=== PATIENT | female | born 1990 | race Caucasian/White ===

== ENCOUNTER 2017-04-11 12:32 | Emergency (ER) | payer OTHER ==
[2017-04-11 12:43] VITALS: BP 112/81
[2017-04-11] MEDS ORDERED: Metoclopramide 10 MG/2 ML SDV IM ONE (13:10)
[2017-04-11] MEDS ORDERED: diphenhydrAMINE 50 MG/ML SDV IM ONE (13:10)
[2017-04-11] MEDS ORDERED: Ketorolac 60 MG/2 ML SDV IM ONE (13:10)
--- NOTE | 2017-04-11 14:12 | EDM.PDOC ---
ED HPI GENERAL MEDICAL PROBLEM - General Chief Complaint: Neurological Problem Stated Complaint: Migraine Time Seen by Provider: 04/11/17 13:00 Source of Information: Reports: Patient, RN Notes Reviewed History Limitations: Reports: No Limitations - History of Present Illness INITIAL COMMENTS - FREE TEXT/NARRATIVE: 26 year old female presents to the ED with complaints of migraine headache, intermittent blurry vision, nausea, vomiting, photophobia, and phonophobia. The headache started around 8am this morning. It started behind her left eye and has progressed to her entire head. She tried Ibuprofen with no relief. She has vomited 3 times today. She has intermittent blurry vision which is typical of her migraine headaches. No loss of balance, weakness, slurred speech, facial droop, or confusion. No possibility of . 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 Denies: Shortness of Breath Cardiovascular: Reports: No Symptoms. Denies: Chest Pain GI/Abdominal: Reports: Nausea, Vomiting. Denies: Abdominal Pain Neurological: Reports: Headache. Denies: Confusion, Dizziness, Numbness, Syncope, Tingling, Trouble Speaking, Difficulty Walking, Weakness - Physical Exam Exam: See Below Exam Limited By: No Limitations General Appearance: Alert, WD/WN, No Apparent Distress Eye Exam: Bilateral Eye: EOMI, PERRL Head Exam: Atraumatic, Normocephalic Respiratory/Chest: No Respiratory Distress, Lungs Clear, Normal Breath Sounds Cardiovascular: Regular Rate, Rhythm GI/Abdominal: Normal Bowel Sounds, Soft, Non-Tender Neuro Exam (Abbreviated): Alert, Oriented, CN II-XII Intact, Normal Cognition, Normal Gait, No Motor/Sensory Deficits, Other (cerebellar testing intact) Course - Vital Signs Last Recorded V/S: Last Vital Signs Temp 97.7 F 04/11/17 12:38 Pulse 70 04/11/17 12:38 Resp 16 04/11/17 12:38 BP 112/81 04/11/17 12:38 Pulse Ox 99 04/11/17 12:38 - Orders/Labs/Meds Meds: Medications Discontinued Medications Generic Name Dose Route Start Last Admin Trade Name Tito PRN Reason Stop Dose Admin Diphenhydramine HCl 25 mg 04/11/17 13:10 04/11/17 13:23 Benadryl IM 04/11/17 13:11 25 mg ONETIME ONE Administration Ketorolac Tromethamine 60 mg 04/11/17 13:10 04/11/17 13:21 Toradol IM 04/11/17 13:11 60 mg ONETIME ONE Administration Metoclopramide HCl 5 mg 04/11/17 13:10 04/11/17 13:24 Reglan IM 04/11/17 13:11 5 mg ONETIME ONE Administration - Re-Assessments/Exams Free Text/Narrative Re-Assessment/Exam: Patient has a normal neurologic exam today and therefore imaging is not indicated. Treated with Benadryl, toradol, and reglan. Patient had good improvement. Discharged home. Educated on return precautions. Discharge instructions as documented. Departure - Departure Time of Disposition: 14:11 Disposition: Home, Self-Care 01 Condition: Good Clinical Impression: Migraine - Discharge Information Referrals: Pyeton Thakur, CONTACT LENS POLISHER [Primary Care Provider] - Forms: ED Department Discharge Additional Instructions: Go home and rest in a dark quiet environment Continue over the counter pain medications as needed Drink plenty of fluids Return to ER with any new or worsening symptoms No driving today due to sedating medications.
== END 2017-04-11 14:25 | disposition home or self-care (01) ==
LOC: JD.ED 12:32
DX: G43.909 Migraine, unspecified, not intractable, without status migrainosus (principal); Z87.440 Personal history of urinary (tract) infections; Z86.2 Personal history of diseases of the blood and blood-forming organs and certain disorders involving the immune mechanism
CPT/HCPCS: 96372; 99283; J1200; J1885; J2765

== ENCOUNTER 2017-06-24 21:41 | Emergency (ER) | payer OTHER ==
[2017-06-24 21:49] VITALS: BP 131/89
[2017-06-24] MEDS ORDERED: Lidocaine/EPINEPHrine/Tetracaine Soln 1 ML TOP ONE (22:04)
--- NOTE | 2017-06-24 22:07 | EDM.PDOC ---
ED HPI GENERAL MEDICAL PROBLEM - General Chief Complaint: Laceration Stated Complaint: INJURED RIGHT EYEBROW Time Seen by Provider: 06/24/17 22:00 Source of Information: Reports: Patient History Limitations: Reports: No Limitations - History of Present Illness INITIAL COMMENTS - FREE TEXT/NARRATIVE: Patient is a 27-year-old female who presents to the ED complaining of a small laceration to the right eyebrow. Patient states her dogs were getting into a fight over.. grabbed the bowl and attempted to hit the dogs with it. During this process patient was actually hit in the eyebrow causing a laceration. There was no loss consciousness. Patient denies any neck or back discomfort. No vision changes or nausea/ vomiting. Pain is localized to the laceration. Tetanus status is up-to-date. 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 Other OB/BYN History: currently undergoing IVF Neurological History: Reports: Migraines Hematologic History: Reports: Anemia - Past Surgical History HEENT Surgical History: Reports: Adenoidectomy, Eye Surgery, Tonsillectomy GI Surgical History: Reports: Colonoscopy Other GI Surgeries/Procedures: per IVF protocol Female Surgical History: Reports: Section, Other (See Below) Other Female Surgeries/Procedures: tubal reconstruction Musculoskeletal Surgical History: Reports: Other (See Below) Other Musculoskeletal Surgeries/Procedures:: ruptured C5 neck surgery Social & Family History - Family History Family Medical History: Noncontributory - Tobacco Use Smoking Status *Q: Never Smoker Second Hand Smoke Exposure: No - Caffeine Use Caffeine Use: Reports: Coffee - Alcohol Use Days Per Week of Alcohol Use: 0 Number of Drinks Per Day: 0 Total Drinks Per Week: 0 - Recreational Drug Use Recreational Drug Use: No Drug Use in Last 12 Months: No ED ROS GENERAL - Review of Systems Review Of Systems: ROS reveals no pertinent complaints other than HPI. ED EXAM, SKIN/RASH Exam: See Below Exam Limited By: No Limitations General Appearance: Alert, WD/WN, No Apparent Distress Eye Exam: Bilateral Eye: EOMI, PERRL Ears: Hearing Grossly Normal Nose: Normal Inspection Throat/Mouth: Normal Voice, No Airway Compromise Head: Other (1 cm linear laceration to the right mid eyebrow. Keeping wound. No bleeding present. Minimal pain with palpation. No bony abnormalities present.) Neck: Normal Inspection, Supple Respiratory/Chest: No Respiratory Distress, No Accessory Muscle Use Cardiovascular: Normal Peripheral Pulses, Regular Rate, Rhythm Peripheral Pulses: 2+: Radial (R) Neurological: Alert, Oriented, CN II-XII Intact, Normal Cognition, No Motor/ Sensory Deficits Psychiatric: Normal Affect, Normal Mood Skin: Warm, Dry, Normal Color ED SKIN PROCEDURES - Laceration/Wound Repair Right Brow Lac/Wound length In cm: 1 Appearance: Subcutaneous, Clean Distal NVT: Neuro & Vascular Intact Anesthetic Type: Topical (LET) Skin Prep: Saline, Sterile Drape Exploration/Debridement/Repair: Wound Explored, In a Bloodless Field, Explored to Base, No Foreign Material Found Closed with: Sutures Suture Size: other (6.0) # of Sutures: 4 Suture Type: Prolene, Interrupted, Simple Drain Placement: No Sterile Dressing Applied: Nurse Tetanus Status Addressed: Yes Complications: No Course - Vital Signs Last Recorded V/S: Last Vital Signs Temp 97.4 F 06/24/17 21:46 Pulse 88 06/24/17 21:46 Resp 18 06/24/17 21:46 BP 131/89 06/24/17 21:46 Pulse Ox 99 06/24/17 21:46 - Orders/Labs/Meds Meds: Medications Discontinued Medications Generic Name Dose Route Start Last Admin Trade Name Freq PRN Reason Stop Dose Admin Lidocaine/Tetracaine 1 ml 06/24/17 22:04 06/24/17 22:12 Let Soln TOP 06/24/17 22:05 1 ml ONETIME ONE Administration - Re-Assessments/Exams Free Text/Narrative Re-Assessment/Exam: Laceration will require closure with sutures. Ordered LET to be applied. Tetanus status is up-to-date. Laceration closed with no complications. Discharge instructions as documented. Departure - Departure Time of Disposition: 23:06 Disposition: Home, Self-Care 01 Condition: Good Clinical Impression: Laceration of eyebrow, right Qualifiers: Encounter type: initial encounter Qualified Code(s): S01.111A - Laceration without foreign body of right eyelid and periocular area, initial encounter - Discharge Information Instructions: Laceration Care, Adult, [id number], Stitches, [place], or Adhesive Wound Closure, [id number] Referrals: Peyton Thakur, STOCK REPLENISHER [Primary Care Provider] - Forms: ED Department Discharge Additional Instructions: Cleanse site twice daily with soap and water, pat dry, reapply triple antibiotic ointment, and dressing. Keep area clean and dry. Do not soak wound. Sutures to come out in 5 days. Please follow up with a provider at [facility] to have these removed. Utilize Tylenol and ibuprofen in alternating fashion for pain. Return to the ED for any new or worsening symptoms.
== END 2017-06-24 23:19 | disposition home or self-care (01) ==
LOC: JD.ED 21:41
DX: S01.111A Laceration without foreign body of right eyelid and periocular area, initial encounter (principal); W22.8XXA Striking against or struck by other objects, initial encounter; D64.9 Anemia, unspecified; G43.909 Migraine, unspecified, not intractable, without status migrainosus
CPT/HCPCS: 12011; 99283; A9270; 99282-25

== ENCOUNTER 2018-02-28 11:03 | Emergency (ER) | payer OTHER ==
[2018-02-28] MEDS ORDERED: Ondansetron 4 MG/2 ML SDV IVPUSH ONE (11:43)
[2018-02-28] MEDS ORDERED: Sodium Chloride 0.9% 1,000 ML IV ONE (11:43)
[2018-02-28] MEDS ORDERED: Sodium Chloride 0.9% 10 ML Syringe FLUSH PRN (11:43)
[2018-02-28] MEDS ORDERED: Pantoprazole 40 MG Vial IVPUSH SCH (11:45)
--- NOTE | 2018-02-28 11:46 | EDM.PDOC ---
ED HPI GENERAL MEDICAL PROBLEM - General Chief Complaint: Gastrointestinal Problem Stated Complaint: VOMITING BLOOD Time Seen by Provider: 02/28/18 11:30 Source of Information: Reports: Patient History Limitations: Reports: No Limitations - History of Present Illness INITIAL COMMENTS - FREE TEXT/NARRATIVE: 27-year-old female presents for evaluation and treatment of a migraine, vomiting and diarrhea. Patient reports she's had a migraine for the last 4 days. She has a history of migraines. She has been on numerous medications but ihas not had any relief. She currently receives Botox and trigger point injections at the pain clinic in [place]. She states it has "been a while "since her last injections. States that this migraine feels typical to her normal migraines. Patient reports that she started vomiting and having diarrhea. She estimates she 's had over 10 episodes of vomiting today. Over 10 episodes of diarrhea today. She became concerned when she appreciated hematemesis, the last 3 episode she's had blood in her emesis. She is having difficulty quantifying the amount of blood and cannot tell if it is a few teaspoons or a cup. Reports seeing several small clots in her emesis. She is unsure she's had any blood in her stool as she has not checked her stool. She reports feeling lightheaded and unwell but no syncope. She has not had an episode of emesis and over an hour and is only been dry heaving now. States she's never had anything like this before. She reports associated symptoms of chest pain which she describes as a heaviness for the last 3 hours. Rates the pain as a 5 out of 10. She states that she's had "a little bit "of shortness of breath. Patient also reports lower back . She has a history of frequent kidney infections. Reports that she has strong urine odor but no dysuria or hematuria. Patient also reports that she has a history of anemia and States her iron is always low. Primary care provider is Alisia Thakur. 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 Other OB/BYN History: currently undergoing IVF Neurological History: Reports: Migraines Hematologic History: Reports: Anemia - Past Surgical History HEENT Surgical History: Reports: Adenoidectomy, Eye Surgery, Tonsillectomy GI Surgical History: Reports: Colonoscopy Female Surgical History: Reports: Section, Other (See Below) Other Female Surgeries/Procedures: tubal reconstruction Neurological Surgical History: Reports: C-Spine Social & Family History - Family History Family Medical History: Noncontributory - Tobacco Use Smoking Status *Q: Never Smoker - Caffeine Use Caffeine Use: Reports: None - Recreational Drug Use Recreational Drug Use: No ED ROS GENERAL - Review of Systems Review Of Systems: See Below Constitutional: Reports: Malaise, Weakness. Denies: Fever Respiratory: Reports: Shortness of Breath Cardiovascular: Reports: Chest Pain ("heaviness"), Lightheadedness GI/Abdominal: Reports: Diarrhea, Hematemesis, Vomiting. Denies: Abdominal Pain : Denies: Dysuria, Hematuria Neurological: Reports: Headache. Denies: Syncope ED EXAM, GI/ABD - Physical Exam Exam: See Below Exam Limited By: No Limitations General Appearance: Alert, WD/WN, No Apparent Distress, Thin Ears: Normal External Exam Nose: Normal Inspection Throat/Mouth: Normal Inspection, Normal Lips, Normal Oropharynx, Normal Voice, No Airway Compromise Neck: Normal Inspection, Full Range of Motion Respiratory/Chest: No Respiratory Distress, Lungs Clear, Normal Breath Sounds Cardiovascular: Normal Peripheral Pulses, Regular Rate, Rhythm, No Murmur GI/Abdominal Exam: Normal Bowel Sounds, Soft, Non-Tender Neurological: Alert, Oriented, Normal Cognition Psychiatric: Normal Affect, Normal Mood Skin Exam: Warm, Dry, Normal Color Course - Vital Signs Last Recorded V/S: Last Vital Signs Temp 98.0 F 02/28/18 11:10 Pulse 84 02/28/18 14:03 Resp 16 02/28/18 14:03 BP 110/76 02/28/18 14:03 Pulse Ox 100 02/28/18 14:03 Orthostatic Blood Pressure [ 125/81 Standing] Orthostatic Blood Pressure [ 107/75 Sitting] Orthostatic Blood Pressure [ 111/71 Supine] - Orders/Labs/Meds Orders: Active Orders 24 hr Category Date Time Status Orthostatic Vital Signs [RC] ASDIRECTED Care 02/28/18 11:43 Active Peripheral IV Care [RC] . DIRECTED Care 02/28/18 11:44 Active UA W/MICROSCOPIC [URIN] Stat Lab 02/28/18 11:43 Ordered Peripheral IV Insertion Adult [OM.PC] Routine Oth 02/28/18 11:43 Ordered Labs: Laboratory Tests 02/28/18 02/28/18 Range/Units 11:54 11:54 WBC 8.81 (3.98-10.04) K/mm3 RBC 5.09 (3.98-5.22) M/mm3 Hgb 14.5 (11.2-15.7) gm/L Hct 43.7 (34.1-44.9) % MCV 85.9 (79.4-94.8) fl MCH 28.5 (25.6-32.2) pg MCHC 33.2 (32.2-35.5) g/dl RDW Std Deviation 44.0 (36.4-46.3) fL Plt Count 355 (182-369) K/mm3 MPV 10.3 (9.4-12.3) fl Neutrophils % (Manual) 76 H (40-60) % Band Neutrophils % 6 (0-10) % Lymphocytes % (Manual) 17 L (20-40) % Atypical Lymphs % 0 % Monocytes % (Manual) 1 L (2-10) % Eosinophils % (Manual) 0 L (0.7-5.8) % Basophils % (Manual) 0 L (0.1-1.2) Platelet Estimate Adequate RBC Morph Comment Normal Sodium 140 (136-145) mEq/L Potassium 3.4 L (3.5-5.1) mEq/L Chloride 105 (98-107) mEq/L Carbon Dioxide 23 (21-32) mEq/L Anion Gap 15.4 H (5-15) BUN 13 (7-18) mg/dL Creatinine 0.9 (0.55-1.02) mg/dL Est Cr Clr Drug Dosing 71.84 mL/min Estimated GFR (MDRD) > 60 (>60) mL/min BUN/Creatinine Ratio 14.4 (14-18) Glucose 91 (74-106) mg/dL Calcium 8.6 (8.5-10.1) mg/dL Total Bilirubin 0.5 (0.2-1.0) mg/dL AST 17 (15-37) U/L ALT 26 (14-59) U/L Alkaline Phosphatase 54 (46-116) U/L Total Protein 7.6 (6.4-8.2) g/dl Albumin 4.3 (3.4-5.0) g/dl Globulin 3.3 gm/dL Albumin/Globulin Ratio 1.3 (1-2) Meds: Medications Discontinued Medications Generic Name Dose Route Start Last Admin Trade Name Freq PRN Reason Stop Dose Admin Sodium Chloride 1,000 mls @ 999 mls/hr 02/28/18 11:43 02/28/18 12:15 Normal Saline IV 02/28/18 12:43 999 mls/hr ONETIME ONE Administration Iopamidol 100 ml 02/28/18 11:51 02/28/18 12:04 Isovue-300 (61%) IVPUSH 02/28/18 11:52 100 ml ONETIME ONE Administration Ketorolac Tromethamine 15 mg 02/28/18 13:47 02/28/18 14:02 Toradol IVPUSH 02/28/18 13:48 15 mg ONETIME ONE Administration Ondansetron HCl 4 mg 02/28/18 11:43 02/28/18 12:09 Zofran IVPUSH 02/28/18 11:44 4 mg ONETIME ONE Administration Pantoprazole Sodium 40 mg 02/28/18 11:45 02/28/18 12:08 Protonix Iv IVPUSH 40 mg DAILY CAMELIA Administration Sodium Chloride 10 ml 02/28/18 11:43 02/28/18 12:15 Saline Flush FLUSH 10 ml ASDIRECTED PRN Administration Keep Vein Open Sodium Chloride 10 ml 02/28/18 11:51 02/28/18 12:04 Saline Flush FLUSH 02/28/18 11:52 10 ml ONETIME ONE Administration - Radiology Interpretation Free Text/Narrative:: CT chest Technique: Multiple axial sections of the chest were obtained. Intravenous contrast was utilized. Comparison: No prior chest imaging. Findings: Mediastinum and hilar region show no adenopathy are mass. Aorta and inferior vena cava appear within normal limits. No pericardial thickening is seen. Small portion of the upper abdominal structures appear within normal limits. No axillary adenopathy is seen. Small pleural-based nodule is identified within the anterior right lung located within the right middle lobe measuring 2.7 mm which is felt to be incidental. Lungs otherwise are clear. No pleural effusions are seen. No pneumothorax is seen. Bone window settings were reviewed but shows no discrete osseous abnormality. Prior cervical spine surgery is partially visualized. Impression: 1. Incidental findings. Nothing acute is appreciated on CT study of the chest. - Re-Assessments/Exams Free Text/Narrative Re-Assessment/Exam: 02/28/18 13:40 I reviewed the labs and imaging with the patient. She has not had any emesis since entering the ER. She likely has a very small tear that caused some bleeding earlier but nothing major. Treatment is to stop the emesis. I'll prescribe her some Zofran. She continues to have a migraine. I offered her some pain medication but she does not want any narcotics. I will give her a small dose of Tordol. Discharge instructions as documented. Departure - Departure Time of Disposition: 13:44 Disposition: Home, Self-Care 01 Condition: Fair Clinical Impression: Kelsey-Diop tear, Viral gastroenteritis - Discharge Information Prescriptions: Ondansetron [Zofran ODT] 4 mg PO Q6H PRN #20 tab.dis PRN Reason: Nausea Instructions: Viral Gastroenteritis, Adult, [id number] Referrals: Peyton Thakur, DRIVER/REFUSE COLLECTOR [Primary Care Provider] - Forms: ED Department Discharge Additional Instructions: Take the Zofran 1 tab sublingual every 6 hours as needed for nausea. Recommend clear fluids today. may advance to a bland diet tomorrow as tolerated. Home diet recommendations include bread, soup broth, crackers, etc. Follow-up with your primary care provider early next week if your symptoms persist. Please return to ER if your symptoms change or worsen. - My Orders Last 24 Hours: My Active Orders 02/28/18 11:43 Orthostatic Vital Signs [RC] ASDIRECTED UA W/MICROSCOPIC [URIN] Stat Peripheral IV Insertion Adult [OM.PC] Routine 02/28/18 11:44 Peripheral IV Care [RC] . DIRECTED - Assessment/Plan Last 24 Hours: My Active Orders 02/28/18 11:43 Orthostatic Vital Signs [RC] ASDIRECTED UA W/MICROSCOPIC [URIN] Stat Peripheral IV Insertion Adult [OM.PC] Routine 02/28/18 11:44 Peripheral IV Care [RC] . DIRECTED
[2018-02-28] MEDS ORDERED: Sodium Chloride 0.9% 10 ML Syringe FLUSH ONE (11:51)
[2018-02-28] MEDS ORDERED: Iopamidol 612 MG/ML 100 ML Bottle IVPUSH ONE (11:51)
--- NOTE | 2018-02-28 12:46 | CT ---
CT chest Technique: Multiple axial sections of the chest were obtained. Intravenous contrast was utilized. Comparison: No prior chest imaging. Findings: Mediastinum and hilar region show no adenopathy are mass. Aorta and inferior vena cava appear within normal limits. No pericardial thickening is seen. Small portion of the upper abdominal structures appear within normal limits. No axillary adenopathy is seen. Small pleural-based nodule is identified within the anterior right lung located within the right middle lobe measuring 2.7 mm which is felt to be incidental. Lungs otherwise are clear. No pleural effusions are seen. No pneumothorax is seen. Bone window settings were reviewed but shows no discrete osseous abnormality. Prior cervical spine surgery is partially visualized. Impression: 1. Incidental findings. Nothing acute is appreciated on CT study of the chest. Diagnostic code #2
[2018-02-28] MEDS ORDERED: Ketorolac 15 MG/ML SDV IVPUSH ONE (13:47)
[2018-02-28 14:05] VITALS: BP 110/76
== END 2018-02-28 14:07 | disposition home or self-care (01) ==
LOC: JD.ED 11:03
DX: A08.4 Viral intestinal infection, unspecified (principal); K22.6 Gastro-esophageal laceration-hemorrhage syndrome; D64.9 Anemia, unspecified
CPT/HCPCS: 36415; 71260; 80053; 85007; 85027; 96361; 96374; 96375; 99284; C9113; J1885; J2405; J7040; J7050; Q9967

== ENCOUNTER 2018-11-01 13:30 | Emergency (ER) | payer OTHER ==
[2018-11-01 13:39] VITALS: BP 127/93
--- NOTE | 2018-11-01 14:48 | EDM.PDOC ---
ED HPI GENERAL MEDICAL PROBLEM - General Chief Complaint: Allergic Reaction Stated Complaint: ALLERGIC RX Time Seen by Provider: 11/01/18 13:39 Source of Information: Reports: Patient History Limitations: Reports: No Limitations - History of Present Illness INITIAL COMMENTS - FREE TEXT/NARRATIVE: 28 yo F presents to ED today for bilateral eyelid swelling, L>R, after having eyelash extensions placed yesterday. She states she started having itching 2 hours after they were placed, and then swelling and feeling of eye lid being " on fire" woke her up at 2am. She tried Benadryl this morning with no relief. She had the eyelash extensions removed this AM. No fever, chills or other signs of infection at this time. She does c/o of some new onset blurry vision d/t her "eyes being on fire". Last visit to the payroll processor was 1 year ago. She has h/o Lasik procedure 4 years ago. 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 COMPUTER GAME TESTER History: currently undergoing IVF Neurological History: Reports: Migraines Hematologic History: Reports: Anemia - Infectious Disease History Infectious Disease History: Reports: Chicken Pox - Past Surgical History HEENT Surgical History: Reports: Adenoidectomy, Eye Surgery, Tonsillectomy GI Surgical History: Reports: Colonoscopy Female Surgical History: Reports: Section, Other (See Below) Other Female Surgeries/Procedures: tubal reconstruction Neurological Surgical History: Reports: C-Spine Musculoskeletal Surgical History: Reports: Other (See Below) Other Musculoskeletal Surgeries/Procedures:: ruptured C5 neck surgery Social & Family History - Family History Family Medical History: Noncontributory - Tobacco Use Smoking Status *Q: Never Smoker - Caffeine Use Caffeine Use: Reports: Coffee - Recreational Drug Use Recreational Drug Use: No ED ROS ALLERGIC REACTION - Review of Systems Review Of Systems: See Below Constitutional: Reports: No Symptoms. Denies: Fever, Chills HEENT: Reports: Eye Pain (eyelid pain), Vision Change (some blurry vision). Denies: Contact Lenses Respiratory: Reports: No Symptoms. Denies: Shortness of Breath Cardiovascular: Reports: No Symptoms Endocrine: Reports: No Symptoms GI/Abdominal: Reports: No Symptoms Skin: Reports: Erythema (eyelids bilaterally), Other (swelling of eyelids bilaterally) Neurological: Reports: No Symptoms ED EXAM GENERAL NO PERIP PULSE - Physical Exam Exam: See Below Exam Limited By: No Limitations General Appearance: Alert, WD/WN Eye Exam: Bilateral Eye: EOMI, PERRL Ears: Normal External Exam, Hearing Grossly Normal Nose: Normal Inspection, Normal Mucosa, No Blood Throat/Mouth: Normal Inspection, Normal Lips, Normal Teeth, Normal Gums, Normal Oropharynx, Normal Voice, No Airway Compromise Head: Atraumatic, Normocephalic Neck: Normal Inspection, Supple, Non-Tender, Full Range of Motion Respiratory/Chest: No Respiratory Distress, Lungs Clear, Normal Breath Sounds, No Accessory Muscle Use, Chest Non-Tender Cardiovascular: Normal Peripheral Pulses, Regular Rate, Rhythm, No Edema, No Gallop, No JVD, No Murmur, No Rub Neurological: Alert, Oriented, CN II-XII Intact, Normal Cognition, Normal Gait, Normal Reflexes, No Motor/Sensory Deficits Course - Vital Signs Last Recorded V/S: Last Vital Signs Temp 98 F 11/01/18 13:30 Pulse 98 11/01/18 13:30 Resp 18 11/01/18 13:30 BP 127/93 H 11/01/18 13:30 Pulse Ox 99 11/01/18 13:30 - Re-Assessments/Exams Free Text/Narrative Re-Assessment/Exam: 11/01/18 14:52 Cold compress for now. No medical treatment warranted at this time. Departure - Departure Time of Disposition: 14:53 Disposition: Home, Self-Care 01 Condition: Good Clinical Impression: Contact dermatitis - Discharge Information *PRESCRIPTION DRUG MONITORING PROGRAM REVIEWED*: Not Applicable *COPY OF PRESCRIPTION DRUG MONITORING REPORT IN PATIENT TANIA: Not Applicable Instructions: Contact Dermatitis, [id number] Referrals: Ariana Theodore PA-C [Primary Care Provider] - Forms: ED Department Discharge Additional Instructions: You were seen in the ED today for bilateral eyelid swelling and pain after placement of eyelash extensions. You already had the extensions removed, which is the main treatment for a contact dermatitis. Continue cold compress and continue to rest the eyes until the swelling decreases. This is not necessarily an allergic reaction, which is why Benadryl didn't work. Continue pain management with [id number] medication such as ibuprofen or Tylenol. If condition does not improve or worsens, please come back to the ED. Recommend f/ u with your payroll processor.
== END 2018-11-01 15:00 | disposition home or self-care (01) ==
LOC: JD.ED 13:30
DX: L25.0 Unspecified contact dermatitis due to cosmetics (principal); Z87.440 Personal history of urinary (tract) infections; Z98.890 Other specified postprocedural states
CPT/HCPCS: 99281; 99283

== ENCOUNTER 2018-11-02 07:58 | Emergency (ER) | payer OTHER ==
[2018-11-02 08:10] VITALS: BP 115/81
[2018-11-02] MEDS ORDERED: predniSONE 20 MG Tab PO STA (08:23)
--- NOTE | 2018-11-02 08:32 | EDM.PDOC ---
ED HPI GENERAL MEDICAL PROBLEM - General Chief Complaint: Allergic Reaction Stated Complaint: ALLERGIC RX GETTING WORSE Time Seen by Provider: 11/02/18 08:08 Source of Information: Reports: Patient, Old Records (ED 11/01/2018), RN Notes Reviewed History Limitations: Reports: No Limitations - History of Present Illness INITIAL COMMENTS - FREE TEXT/NARRATIVE: The patient states that she developed bilateral eyelid swelling, upper and lower , 2 days ago, 10/31/2018. She states that her eyelids burn. No globe issues, such as burning or visual changes. No systemic allergic reactions, such as urticaria, rash, angioedema, dyspnea, or wheezing. No recent fever. The patient states that she has been taking Benadryl, 3 tabs (75 mg) every 4 hours, to help her sleep. She has also been taking Tylenol, and applying cold compresses, without relief of her symptoms. No prior similar symptoms. The patient reports that she had eyelash extensions applied 9 days ago, 10/24/2018, but that they were removed the same day. She states that she only occasionally uses eyeliner or mascara. The patient denies chemical exposure, either at work or at home. Medical records indicate that the patient was seen in this ED yesterday. The history provided by the patient today does not match the history documented yesterday. The patient was diagnosed with contact dermatitis, and cold compresses to the eyelids was recommended. The patient's PCP is Ariana Grijalva. 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 Ovarian cystectomy x 1) Neurological Surgical History: Reports: C-Spine (C4-C5 ACDF) Musculoskeletal Surgical History: Reports: Other (See Below) Other Musculoskeletal Surgeries/Procedures:: ruptured C5 neck surgery Social & Family History - Family History Family Medical History: Noncontributory - Tobacco Use Smoking Status *Q: Never Smoker Second Hand Smoke Exposure: No - Caffeine Use Caffeine Use: Reports: Coffee - Alcohol Use Alcohol Use History: Yes Alcohol Use Frequency: Socially - Recreational Drug Use Recreational Drug Use: No - Living Situation & Occupation Living situation: Reports: , with Spouse, with Family (2 kids) 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 ED EXAM, GENERAL - Physical Exam Exam: See Below Exam Limited By: No Limitations General Appearance: Alert, WD/WN, No Apparent Distress Eye Exam: Bilateral Eye: EOMI, Normal Inspection, Other (Bilateral upper and lower eyelid edema, with mild erythema) Ears: Normal External Exam, Hearing Grossly Normal Nose: Normal Inspection Throat/Mouth: Normal Inspection, Normal Lips, Normal Teeth, Normal Gums, Normal Oropharynx, Normal Voice, No Airway Compromise Head: Atraumatic, Normocephalic Neck: Normal Inspection, Full Range of Motion. No: Lymphadenopathy (L), Lymphadenopathy (R) Respiratory/Chest: No Respiratory Distress, Lungs Clear, Normal Breath Sounds, No Accessory Muscle Use. No: Decreased Breath Sounds, Crackles, Rhonchi, Wheezing, Prolonged Expiration Cardiovascular: Normal Peripheral Pulses, Regular Rate, Rhythm, No Edema, No Gallop, No JVD, No Murmur, No Rub Peripheral Pulses: 4+: Radial (L), Radial (R) GI/Abdominal: Normal Bowel Sounds, Soft, Non-Tender, No Organomegaly, No Distention, No Abnormal Bruit, No Mass (Female) Exam: Deferred Rectal (Female) Exam: Deferred Back Exam: Normal Inspection, Full Range of Motion, NT Extremities: Normal Inspection, Normal Range of Motion, No Pedal Edema, Normal Capillary Refill Neurological: Alert, Oriented, Normal Cognition, No Motor/Sensory Deficits Psychiatric: Normal Affect Skin Exam: Warm, Dry, Intact, Normal Color, No Rash Course - Vital Signs Last Recorded V/S: Last Vital Signs Temp 36.9 C 11/02/18 08:04 Pulse 65 11/02/18 08:04 Resp 12 11/02/18 08:04 BP 115/81 11/02/18 08:04 Pulse Ox 100 11/02/18 08:04 - Orders/Labs/Meds Meds: Medications Discontinued Medications Generic Name Dose Route Start Last Admin Trade Name Tito PRN Reason Stop Dose Admin Prednisone 40 mg 11/02/18 08:23 Prednisone PO 11/02/18 08:24 ONETIME STA - Re-Assessments/Exams Free Text/Narrative Re-Assessment/Exam: 11/02/18 08:24 The patient appears to be suffering from a delayed contact dermatitis to her eyelids, following eyelid extensions being applied on 10/24/2018. Cold compresses have not helped, therefore I will give the patient a five-day course of oral prednisone - 40 mg here in the ED, then 20 mg daily, starting tomorrow. If the prednisone either fails to reduce the swelling, or is successful, but the swelling returns, I would like the patient to follow-up with an eye doctor. Departure - Departure Time of Disposition: 08:26 Disposition: Home, Self-Care 01 Condition: Fair Clinical Impression: Contact dermatitis of eyelid - Discharge Information *PRESCRIPTION DRUG MONITORING PROGRAM REVIEWED*: Not Applicable *COPY OF PRESCRIPTION DRUG MONITORING REPORT IN PATIENT TANIA: Not Applicable Referrals: Ariana Theodore PA-C [Primary Care Provider] - Additional Instructions: You were seen in the emergency room for eyelid swelling that began a week after having eyelid extensions placed and removed. Based on your history and physical examination, your eyelid swelling is most likely due to contact dermatitis from the eyelid extension adhesive. You have been started on the steroid prednisone. A prescription for prednisone has been sent to the [facility], located just south [address] [place] [address] from [facility], [place]. Take one tablet of prednisone, with food, starting tomorrow, 11/03/2018, as prescribed. While on prednisone, do not also take an NSAID, such as ibuprofen (Motrin, Advil ), naproxen (Aleve), or aspirin. Continue to apply cold compresses to your eyelids, as much as possible. Try to avoid heat. Keep your eyelids clean with ordinary soap and water, when you bathe. Do not apply any eyeliner or eye makeup. If the prednisone fails to reduce your swelling, or if the swelling goes down, only to return once the prednisone is finished, please follow-up with an eye doctor. If any other problems, please do not hesitate to return to the ER.
== END 2018-11-02 08:40 | disposition home or self-care (01) ==
LOC: JD.ED 07:58
DX: L25.9 Unspecified contact dermatitis, unspecified cause (principal)
CPT/HCPCS: 99283; A9270

== ENCOUNTER 2019-10-23 11:49 | Emergency (ER) | payer OTHER ==
[2019-10-23 12:01] VITALS: BP 132/88; PULSE 83
[2019-10-23] MEDS ORDERED: Sodium Chloride 0.9% 1,000 ML IV ONE (12:03)
[2019-10-23] MEDS ORDERED: Ondansetron 4 MG/2 ML SDV IVPUSH ONE (12:03)
[2019-10-23] MEDS ORDERED: Sodium Chloride 0.9% 10 ML Syringe FLUSH PRN (12:31)
[2019-10-23] MEDS ORDERED: HYDROmorphone 0.5 MG/0.5 ML Syringe IVPUSH ONE ×2 (12:31→14:10)
--- NOTE | 2019-10-23 13:25 | EDM.PDOC ---
ED HPI GENERAL MEDICAL PROBLEM - General Chief Complaint: Flank Pain Stated Complaint: FLANK PAIN Time Seen by Provider: 10/23/19 12:02 Source of Information: Reports: Patient, RN Notes Reviewed History Limitations: Reports: No Limitations - History of Present Illness INITIAL COMMENTS - FREE TEXT/NARRATIVE: Patient is a 29-year-old female who presents to the ED for evaluation of left- sided flank pain. Patient notes this is been present since around Saturday. She is complaining of left-sided flank pain, dysuria, and urinary frequency. She did also have a few vomiting episodes, Saturday night. She is also complaining of intermittent nausea, chills and some hot flashes. She has not taken her temperature at home as she does not have a thermometer. Patient states that she does have a history of kidney stones. She has been taking [id number] Tylenol but it does not really provide much relief from the pain. Patient denies any sort of chance of as she does not have any fallopian tubes. She would rate her pain at about 5 out of 10 at today's visit. 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 Other DIE TURNER History: currently undergoing IVF Musculoskeletal History: Reports: Fracture Neurological History: Reports: Migraines Hematologic History: Reports: Anemia - Infectious Disease History Infectious Disease History: Reports: Chicken Pox - Past Surgical History HEENT Surgical History: Reports: Adenoidectomy, LASIK, Oral Surgery, Tonsillectomy GI Surgical History: Reports: Colonoscopy Female Surgical History: Reports: Section Neurological Surgical History: Reports: C-Spine Musculoskeletal Surgical History: Reports: Other (See Below) Other Musculoskeletal Surgeries/Procedures:: ruptured C5 neck surgery Social & Family History - Family History Family Medical History: Noncontributory - Tobacco Use Smoking Status *Q: Never Smoker - Caffeine Use Caffeine Use: Reports: Coffee - Recreational Drug Use Recreational Drug Use: No - Living Situation & Occupation Living situation: Reports: , with Spouse, with Family (2 kids) 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 Denies: Fever Respiratory: Denies: Shortness of Breath Cardiovascular: Denies: Chest Pain GI/Abdominal: Reports: Nausea, Vomiting. Denies: Abdominal Pain, Constipation, Diarrhea : Reports: Dysuria, Flank Pain (L flank), Frequency Musculoskeletal: Reports: Back Pain (L upper back) ED EXAM, RENAL/ - Physical Exam Exam: See Below Exam Limited By: No Limitations General Appearance: Alert, WD/WN, No Apparent Distress Eye Exam: Bilateral Eye: EOMI, Normal Inspection, PERRL Nose: Normal Inspection Throat/Mouth: Normal Inspection Head: Atraumatic, Normocephalic Neck: Normal Inspection Respiratory/Chest: No Respiratory Distress, Lungs Clear, Normal Breath Sounds, No Accessory Muscle Use, Chest Non-Tender Cardiovascular: Normal Peripheral Pulses, Regular Rate, Rhythm, No Murmur GI/Abdominal: Normal Bowel Sounds, Soft, Non-Tender, No Distention, No Mass Back Exam: Normal Inspection, CVA Tenderness (L). No: CVA Tenderness (R) Extremities: Normal Inspection, Normal Capillary Refill Neurological: Alert, Oriented, Normal Cognition, No Motor/Sensory Deficits Psychiatric: Normal Affect, Normal Mood Skin Exam: Warm, Dry, Intact, Normal Color, No Rash Course - Vital Signs Last Recorded V/S: Last Vital Signs Temp 99.1 F 10/23/19 11:58 Pulse 83 10/23/19 11:58 Resp 14 10/23/19 11:58 BP 132/88 10/23/19 11:58 Pulse Ox 100 10/23/19 11:58 - Orders/Labs/Meds Orders: Active Orders 24 hr Category Date Time Status Peripheral IV Care [RC] . DIRECTED Care 10/23/19 12:31 Ordered Strain Urine [RC] ASDIRECTED Care 10/23/19 12:03 Ordered Abdomen Pelvis wo Cont [CT] Stat Exams 10/23/19 12:03 Ordered CULTURE URINE [RM] Stat Lab 10/23/19 14:43 Ordered Sodium Chloride 0.9% [Saline Flush] Med 10/23/19 12:31 Ordered 10 ml FLUSH ASDIRECTED PRN Peripheral IV Insertion Adult [OM.PC] Stat Oth 10/23/19 12:31 Ordered Medication Orders Sodium Chloride (Saline Flush) 10 ml FLUSH ASDIRECTED PRN PRN Reason: Keep Vein Open Last Admin: 10/23/19 13:03 Dose: 10 ml Labs: Laboratory Tests 10/23/19 10/23/19 Range/Units 12:03 12:46 WBC 7.27 (3.98-10.04) K/mm3 RBC 4.22 (3.98-5.22) M/mm3 Hgb 11.9 D (11.2-15.7) gm/dl Hct 36.9 (34.1-44.9) % MCV 87.4 D (79.4-94.8) fl MCH 28.2 (25.6-32.2) pg MCHC 32.2 (32.2-35.5) g/dl RDW Std Deviation 44.5 (36.4-46.3) fL Plt Count 267 (182-369) K/mm3 MPV 10.1 (9.4-12.3) fl Neut % (Auto) 78.4 H (34.0-71.1) % Lymph % (Auto) 10.6 L (19.3-51.7) % Rogers % (Auto) 8.7 (4.7-12.5) % Eos % (Auto) 1.9 (0.7-5.8) Baso % (Auto) 0.3 (0.1-1.2) % Neut # (Auto) 5.70 (1.56-6.13) K/mm3 Lymph # (Auto) 0.77 L (1.18-3.74) K/mm3 Rogers # (Auto) 0.63 H (0.24-0.36) K/mm3 Eos # (Auto) 0.14 (0.04-0.36) K/mm3 Baso # (Auto) 0.02 (0.01-0.08) K/mm3 Urine Color Light yellow (Yellow) Urine Appearance Slt cloudy H (Clear) Urine pH 6.0 (5.0-8.0) Ur Specific [place] 1.025 (1.005-1.030) Urine Protein 2+ H (Negative) Urine Glucose (UA) Negative (Negative) Urine Ketones 2+ H (Negative) Urine Occult Blood 3+ H (Negative) Urine Nitrite Positive H (Negative) Urine Bilirubin 1+ H (Negative) Urine Urobilinogen 0.2 (0.2-1.0) Ur Leukocyte Esterase 1+ H (Negative) Urine RBC >100 H (0-5) /hpf Urine WBC 10-20 H (0-5) /hpf Ur Squamous Epith Cells 0-5 (0-5) /hpf Urine Bacteria Moderate H (FEW) /hpf Urine Mucus Not seen (FEW) /hpf Meds: Medications Generic Name Dose Route Start Last Admin Trade Name Freq PRN Reason Stop Dose Admin Sodium Chloride 10 ml 10/23/19 12:31 10/23/19 13:03 Saline Flush FLUSH 10 ml ASDIRECTED PRN Administration Keep Vein Open Discontinued Medications Generic Name Dose Route Start Last Admin Trade Name Freq PRN Reason Stop Dose Admin Hydromorphone HCl 0.5 mg 10/23/19 12:31 10/23/19 13:02 Dilaudid IVPUSH 10/23/19 12:32 0.5 mg ONETIME ONE Administration Hydromorphone HCl 0.5 mg 10/23/19 14:10 10/23/19 14:23 Dilaudid IVPUSH 10/23/19 14:11 0.5 mg ONETIME ONE Administration Sodium Chloride 1,000 mls @ 999 mls/hr 10/23/19 12:03 10/23/19 13:01 Normal Saline IV 10/23/19 13:03 999 mls/hr ASDIRECTED ONE Administration Ceftriaxone Sodium 1 gm/ 100 mls @ 200 mls/hr 10/23/19 13:33 10/23/19 14:06 Sodium Chloride IV 10/23/19 14:02 200 mls/hr ONETIME ONE Administration Ondansetron HCl 4 mg 10/23/19 12:03 10/23/19 13:01 Zofran IVPUSH 10/23/19 12:04 4 mg ONETIME ONE Administration - Re-Assessments/Exams Free Text/Narrative Re-Assessment/Exam: 10/23/19 12:36 Patient presents to the ED for the evaluation of left-sided flank pain. Due to the patient's history of kidney stone, I did order IV to be placed with some IV fluids, abdomen pelvis CT without contrast, urinalysis, 4 mg Zofran and 0.5 mg Dilaudid for initial management. 10/23/19 14:13 Patient urinalysis is highly suggestive of a pyelonephritis at this time. The CT did demonstrate a nonobstructing left renal calculus measuring 6.2 mm, there was nothing noted in the ureter however. At this time patient will be treated for the pyelonephritis and she has been given 1 g of Rocephin, she is still having some mild pain so I will order another 0.5mg of Dilaudid for the pain relief. Departure - Departure Time of Disposition: 14:44 Disposition: Home, Self-Care 01 Condition: Fair Clinical Impression: Pyelonephritis - Discharge Information *PRESCRIPTION DRUG MONITORING PROGRAM REVIEWED*: No *COPY OF PRESCRIPTION DRUG MONITORING REPORT IN PATIENT TANIA: No Prescriptions: Ciprofloxacin HCl [Cipro] 500 mg PO BID #20 tablet Instructions: Pyelonephritis, Adult, [id number] Referrals: PCP,None [Primary Care Provider] - Forms: ED Department Discharge Additional Instructions: You have been evaluated in the ED for your urinary symptoms. Your urinalysis was consistent with pyelonephritis. Your urine was sent for culture, and you will be notified if you should need a change in your antibiotic. This may take up to [address] A [address] was done at today's visit, due to history of kidney stones, this did demonstrate a pyelonephritis, which is a slightly progressed UTI. You may take AZO for urinary pain relief. This is available over the counter, and can be attained at any retail store like [employer] or any pharmacy. Please be aware that this medication will make your urine turn orange. You have been given a prescription for Ciprofloxacin, 500 mg 1 tablet 2 times a day for 10 days. Recommend that you take 600 mg ibuprofen every 6 hours for further pain relief. Do not exceed 3200 mg of ibuprofen in a 24-hour time span. Please increase your oral fluid intake and try to stay adequately hydrated. Please return to the ED if your symptoms change or worsen. Sepsis Event Note - Evaluation Sepsis Screening Result: No Definite Risk - Focused Exam Vital Signs: Vital Signs Temp Pulse Resp BP Pulse Ox 10/23/19 11:58 99.1 F 83 14 132/88 100 Date Exam was Performed: 10/23/19 Time Exam was Performed: 14:43 - My Orders Last 24 Hours: My Active Orders 10/23/19 12:03 Strain Urine [RC] ASDIRECTED Abdomen Pelvis wo Cont [CT] Stat 10/23/19 12:31 Peripheral IV Care [RC] . DIRECTED Sodium Chloride 0.9% [Saline Flush] 10 ml FLUSH ASDIRECTED PRN Peripheral IV Insertion Adult [OM.PC] Stat 10/23/19 14:43 CULTURE URINE [RM] Stat - Assessment/Plan Last 24 Hours: My Active Orders 10/23/19 12:03 Strain Urine [RC] ASDIRECTED Abdomen Pelvis wo Cont [CT] Stat 10/23/19 12:31 Peripheral IV Care [RC] . DIRECTED Sodium Chloride 0.9% [Saline Flush] 10 ml FLUSH ASDIRECTED PRN Peripheral IV Insertion Adult [OM.PC] Stat 10/23/19 14:43 CULTURE URINE [RM] Stat
[2019-10-23] MEDS ORDERED: cefTRIAXone 1 GM in Sodium Chloride 0.9% 100 ML IV ONE (13:33)
--- NOTE | 2019-10-24 08:07 | CT ---
CT abdomen and pelvis Technique: Multiple axial sections were obtained from above the dome of the diaphragm inferiorly through the pubic symphysis. Intravenous and oral contrast was not not utilized. Study has been performed as a ureteral stone protocol. Comparison: Previous CT abdomen and pelvis exam of 07/24/18. Findings: Nonobstructing calculus noted within the left kidney. This stone measures approximately 7 mm and is seen on previous exam. No ureteral dilatation or ureteral stone is seen. Other findings: Visualized lung bases show nothing acute. Noncontrast appearance of the liver shows no focal parenchymal abnormality. Spleen appears normal. Gallbladder contains no calcified gallstones. Pancreas is within normal limits. Aorta shows no aneurysm. No retroperitoneal adenopathy or mesenteric abnormalities are seen. No pelvic mass or adenopathy is noted. Small amount of free fluid noted within the pelvis which is most likely physiologic. No free fluid or inflammatory change is appreciated. Slight increased stool seen throughout the colon. Appendix is not definitely visualized. Bone window settings were reviewed. No acute osseous finding is seen. Impression: 1. Stable nonobstructing stone within the left kidney from prior exam. 2. No ureteral dilatation or ureteral calcifications are seen. 3. Mild increased stool within the colon. 4. Small amount of fluid within the cul-de-sac believed to be physiologic. 5. Nothing acute is otherwise seen on noncontrast CT study of the abdomen and pelvis performed as a ureteral stone protocol. Diagnostic code #3 This report was dictated in [place] Standard Time I agree with preliminary report from [facility], finalized on 10/23/19, 2:43 PM Central Time
== END 2019-10-23 15:04 | disposition home or self-care (01) ==
LOC: JD.ED 11:49
DX: N12 Tubulo-interstitial nephritis, not specified as acute or chronic (principal)
CPT/HCPCS: 36415; 74176; 81001; 85025; 87086; 87088; 87184; 87186; 96361; 96374; 96375; 96376; 99284; J0696; J1170; J2405; J7030; J7050

== ENCOUNTER 2020-04-14 10:47 | Emergency (ER) | payer OTHER ==
[2020-04-14] MEDS ORDERED: Ibuprofen 600 MG Tab PO ONE (11:09)
[2020-04-14 11:12] VITALS: BP 110/95; PULSE 69
--- NOTE | 2020-04-14 11:15 | EDM.PDOC ---
ED HPI GENERAL MEDICAL PROBLEM - General Chief Complaint: Lower Extremity Injury/Pain Stated Complaint: FALL/ L FOOT INJURY Time Seen by Provider: 04/14/20 11:03 Source of Information: Reports: Patient, Significant Other (Boyfriend) History Limitations: Reports: No Limitations - History of Present Illness INITIAL COMMENTS - FREE TEXT/NARRATIVE: Ms. Summers is a very pleasant 29-year-old woman who now presents the ED with a left foot injury. She states that she missed a step while going down stairs around 10:00 this morning, injuring the lateral aspect of her foot. She states that initially her pain was limited to the lateral aspect of her foot, but now involves the entire foot. Her pain is made worse with ambulation. No prior left foot injury, and she states that she is otherwise uninjured. The patient did not take any home remedies or horv-blq-rlxaqxd medicines prior to coming to the ED. Here in the ED, the patient is found to be hemodynamically stable, afebrile, saturating 100% on room air. Other than her current left foot injury, the patient denies recent fever, chills, sore throat, ear pain, nasal or sinus congestion, cough, dyspnea, chest pain, palpitations, nausea, vomiting, constipation, diarrhea, abdominal pain, urinary symptoms, recent weight gain or weight loss, recent bloody bowel movements or black bowel movements, recent joint aches, headaches, or rashes. The patient's PCP is ALEXANDER Waddell. Her Supervisor Diagnostic is Dr. Tone Goetz. Left Feet Pain Score (Numeric/FACES): 7 - Related Data Allergies Allergy/AdvReac Type Severity Reaction Status Date / Time No Known Allergies Allergy Verified 10/23/19 11:57 Home Meds: Home Meds Acetaminophen/HYDROcodone [Cooter 325-5 MG] 1 - 2 tab PO Q6H PRN #20 tablet 04/14/20 [Rx] Topiramate 50 mg PO DAILY 04/14/20 [History] Past Medical History Genitourinary History: Reports: Renal Calculus MOLDER LABELS History: Reports: Ectopic , Other (See Below) (Ovarian cysts) Musculoskeletal History: Reports: Fracture (C5) Neurological History: Reports: Migraines Hematologic History: Reports: Anemia - Infectious Disease History Infectious Disease History: Reports: Chicken Pox - Past Surgical History HEENT Surgical History: Reports: Adenoidectomy, LASIK (bilateral, around 2015), Oral Surgery (wisdom teeth extraction), Tonsillectomy GI Surgical History: Reports: Colonoscopy (x 1) Female Surgical History: Reports: Section (x 1), Other (See Below) (Tubal reconstruction. 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 ED EXAM, GENERAL - Physical Exam Exam: See Below Exam Limited By: No Limitations General Appearance: Alert, WD/WN, No Apparent Distress Peripheral Pulses: 3+: Radial (L), Radial (R), Posterior Tibial (L), Posterior Tibial (R), Dorsalis Pedis (L), Dorsalis Pedis (R) Extremities: Other (There is an approximately 6 cm x 4 cm oval raised ecchymosis to the lateral aspect of the patient's foot, which is tender. No other visible abnormalities to the remainder of the foot, such as swelling, erythema, ecchym osis, or abrasion, and there is no significant tenderness to palpation of the remainder of the foot. Neurovascular status of the left lower extremity is intact.) ED TRAUMA EXTREMITY PROCEDURES - Splinting Left Lower Extremity Splint Site: Left foot Pre-Procedure NV Status: Normal Post-Procedure NV Status: Normal Splint Material: Fiberglass Splint Design: Posterior Applied & Form Fitted By: Provider Provider Post-Splint Application NV Check: NV Status Normal, Good Position Complications: No Course - Vital Signs Last Recorded V/S: Last Vital Signs Temp 37.1 C 04/14/20 11:11 Pulse 69 04/14/20 11:11 Resp 20 04/14/20 11:11 BP 110/95 H 04/14/20 11:11 Pulse Ox 100 04/14/20 11:11 - Orders/Labs/Meds Meds: Medications Discontinued Medications Generic Name Dose Route Start Last Admin Trade Name Tito PRN Reason Stop Dose Admin Ibuprofen 600 mg 04/14/20 11:09 04/14/20 11:25 Motrin PO 04/14/20 11:10 600 mg ONETIME ONE Administration - Re-Assessments/Exams Free Text/Narrative Re-Assessment/Exam: 04/14/20 11:10 As above, the patient injured the lateral aspect of her left foot around 10:00 this morning, when she missed a step while going downstairs. She has a swollen ecchymosis to the lateral aspect of the left foot, and while she states that her entire foot feels sore, her tenderness is primarily limited to the area of the ecchymosis. I have ordered x-rays of the foot to evaluate. In the meantime, I got the patient an ice pack, and I ordered ibuprofen. 04/14/20 11:31 4-view radiographs of the left foot appear to demonstrate a mildly displaced proximal diaphyseal fracture of the left 5th metatarsal (Dyson fracture). No other fractures or dislocations identified. Formal read per the radiologist pending. Because there is greater than 2 mm of displacement, she will be require internal fixation. For today's purposes, the patient will be placed into a posterior splint and fitted for crutches. She is to ice and elevate the left foot as much as possible for the next few days to help minimize swelling. She is to take [id number] ibuprofen kcplrw-[id number], and I will prescribe some Cooter, in addition. 04/14/20 11:[address] Abreu at 11:40. He would like us to fax a copy of the patient's facesheet to their office, and they will then call the patient to make an appointment for her to be seen this coming 04/20/2020, at 12:45. He requested that I push the X-Ray images [facility]. That has been done. 04/14/20 12:00 I placed a posterior mold splint, with the patient's ankle at 90 degrees. She will be fitted for crutches. I will discharge her home with a prescription for Cooter. The assembler unit will be faxing a copy of the patient's face sheet to Dr. Abreu's office. Departure - Departure Time of Disposition: 12:00 Disposition: Home, Self-Care 01 Condition: Good Clinical Impression: Dyson fracture - Discharge Information *PRESCRIPTION DRUG MONITORING PROGRAM REVIEWED*: Not Applicable *COPY OF PRESCRIPTION DRUG MONITORING REPORT IN PATIENT TANIA: Not Applicable Prescriptions: Acetaminophen/HYDROcodone [Cooter 325-5 MG] 1 - 2 tab PO Q6H PRN #20 tablet PRN Reason: Pain (Severe 7-10) Instructions: Cast or Splint Care, Adult Referrals: Christiano Abreu MD [Physician] - Ariana Theodore PA-C [Primary Care Provider] - Tone Goetz MD [Physician] - Forms: ED Department Discharge Additional Instructions: You were seen in the emergency room after injuring your left foot when missing a stair while going downstairs around 10:00 this morning. Work-up in the ER included x-rays of your left foot, which showed a mildly displaced fracture at the base of your left 5th metatarsal bone, an injury known as a Dyson fracture. You have been placed into a posterior mold splint. The splint cannot get wet, and you cannot bear weight on it. Use crutches for all ambulation, however, you may also consider renting a knee scooter. We recommend that you ice and elevate your left foot as much as possible over the next 2 days, to help minimize swelling. You may take sgoy-ojs-dapaetj ibuprofen, 3 tablets (600 mg) up to every 8 hours, with food, as needed for discomfort. You have been given a prescription for the opioid pain reliever Cooter. You may take 1 to 2 tablets of Cooter up to every 6 hours, as needed for pain not relieved by ibuprofen. If you take Cooter, do not drive for 12 hours afterwards. Cooter may cause constipation, so consider taking a stool softener. As discussed, there is a good chance that you will require surgical fixation of the broken bone. The office of the Orthopedic Surgeon Dr. Christiano Abreu will be contacting you to confirm an appointment to see Dr. Abreu this coming 04/20/2020, at 12:45. If any other problems, please do not hesitate to return to the ER. Sepsis Event Note (ED) - Focused Exam Vital Signs: Vital Signs Temp Pulse Resp BP Pulse Ox 04/14/20 11:11 37.1 C 69 20 110/95 H 100
--- NOTE | 2020-04-14 12:03 | CR ---
Left foot: 4 views left foot were obtained. Comparison: No previous foot study. Mildly displaced fracture is noted involving the base of the left fifth metatarsal. No additional abnormality is appreciated other than soft tissue swelling. Impression: 1. Fracture and soft tissue swelling as described above. Diagnostic code #3 This report was dictated in MDT
== END 2020-04-14 12:29 | disposition home or self-care (01) ==
LOC: JD.ED 10:47
DX: S92.352A Displaced fracture of fifth metatarsal bone, left foot, initial encounter for closed fracture (principal); Z79.899 Other long term (current) drug therapy; W10.9XXA Fall (on) (from) unspecified stairs and steps, initial encounter
CPT/HCPCS: 29515; 73630; 99283; A9270

== ENCOUNTER 2022-07-31 02:57 | Inpatient (IN) | payer SELFPAY ==
[~2022-07-31 02:57] MED LIST: Lactated Ringers 1,000 ML IV SCH; Oxytocin/Lactated Ringers 10 UNIT/1,000 ML BAG IV SCH; Sodium Chloride 0.9% 10 ML Syringe FLUSH PRN
[2022-07-31] MEDS ORDERED: Metoclopramide 10 MG/2 ML SDV IVPUSH ONE ×2 (05:30→05:45)
[2022-07-31] MEDS ORDERED: Citric Acid/Sodium Citrate Solution 30 ML Cup PO ONE ×2 (05:30→05:45)
[2022-07-31] MEDS ORDERED: Sodium Chloride 0.9% 10 ML Syringe FLUSH PRN (05:35)
[2022-07-31] MEDS ORDERED: Oxytocin/Lactated Ringers 10 UNIT/1,000 ML BAG IV SCH (05:45)
[2022-07-31] MEDS ORDERED: ceFAZolin 2 GM in Sodium Chloride 0.9% 50 ML IV ONE ×2 (05:45→07:00)
[2022-07-31] MEDS ORDERED: Lactated Ringers 1,000 ML IV SCH (05:45)
[2022-07-31] MEDS ORDERED: ceFAZolin 2 GM Vial ONE (07:16)
[2022-07-31] MEDS ORDERED: Phenylephrine HCl In 0.9% NaCl 1 MG/10 ML Vial ONE (07:17)
[2022-07-31] MEDS ORDERED: Morphine PF 10 MG/10 ML SDV ONE (07:17)
[2022-07-31] MEDS ORDERED: Ondansetron 4 MG/2 ML SDV ONE (07:17)
[2022-07-31] MEDS ORDERED: fentaNYL 100 MCG/2 ML SDV ONE (07:18)
[2022-07-31] MEDS ORDERED: Bupivacaine 0.5% 30 ML SDV ONE (07:19)
[2022-07-31] MEDS ORDERED: Dexmedetomidine 200 MCG/2 ML SDV ONE (08:38)
[2022-07-31] MEDS ORDERED: Oxytocin 10 Units/1 ML SDV ONE (08:42)
[2022-07-31] MEDS ORDERED: Meperidine 50 MG/ML Vial IVPUSH PRN (08:43)
[2022-07-31] MEDS ORDERED: diphenhydrAMINE 50 MG/ML SDV IVPUSH PRN ×2 (08:43→10:21)
[2022-07-31] MEDS ORDERED: fentaNYL 100 MCG/2 ML SDV IVPUSH PRN (08:43)
[2022-07-31] MEDS ORDERED: Ondansetron 4 MG/2 ML SDV IVPUSH PRN (08:43)
[2022-07-31] MEDS ORDERED: Ketorolac 30 MG/ML SDV ONE (08:52)
[2022-07-31] MEDS ORDERED: Sodium Chloride 0.9% 10 ML Syringe FLUSH SCH ×2 (09:00)
[2022-07-31] MEDS ORDERED: Acetaminophen/oxyCODONE 325-5 MG Tab PO PRN (10:21)
[2022-07-31] MEDS ORDERED: Naloxone 0.4 MG/ML SDV IVPUSH PRN (10:21)
[2022-07-31] MEDS ORDERED: Dextrose 5%-Lactated Ringers 1,000 ML IV SCH (10:21)
[2022-07-31] MEDS ORDERED: ePHEDrine 50 MG/ML SDV IVPUSH PRN (10:21)
[2022-07-31] MEDS ORDERED: Ondansetron 4 MG/2 ML SDV IV PRN (10:21)
[2022-07-31] MEDS: Prenatal Multivitamin with Calcium/Folic Acid/Iron Tab PO SCH (10:41)
[2022-07-31] MEDS: Acetaminophen/oxyCODONE 325-5 MG Tab PO PRN ×2 (11:47→21:23)
[2022-07-31] MEDS: Docusate Sodium 100 MG Cap PO PRN (11:47)
[2022-07-31] MEDS: Simethicone 80 MG Tab.Chew PO SCH ×3 (14:11→20:36)
[2022-07-31] MEDS: Ibuprofen 800 MG Tab PO SCH ×2 (16:52→23:15)
[2022-08-01] MEDS: Ibuprofen 800 MG Tab PO SCH (07:03)
[2022-08-01] MEDS: Prenatal Multivitamin with Calcium/Folic Acid/Iron Tab PO SCH (08:44)
[2022-08-01] MEDS: Simethicone 80 MG Tab.Chew PO SCH ×2 (08:44→14:37)
[2022-08-01] MEDS: Docusate Sodium 100 MG Cap PO PRN (08:44)
[2022-08-01 09:26] VITALS: BP 121/80; PULSE 73
[2022-08-01] MEDS: Acetaminophen/oxyCODONE 325-5 MG Tab PO PRN (11:51)
== END 2022-08-01 14:30 | disposition home or self-care (01) | DRG 788 ==
LOC: JD.OB 05:08
PROVIDERS: ADMIT Obstetrics & Gynecology; ATTEND Obstetrics & Gynecology
PROC: 10D00Z1 Extraction of Products of Conception, Low, Open Approach (ICD-10-PCS; principal; 2022-07-31)
DX: O34.211 Maternal care for low transverse scar from previous cesarean delivery (principal); Z3A.39 39 weeks gestation of pregnancy; Z37.0 Single live birth; Z87.51 Personal history of pre-term labor; Z87.59 Personal history of other complications of pregnancy, childbirth and the puerperium; O99.824 Streptococcus B carrier state complicating childbirth; O99.02 Anemia complicating childbirth; D64.9 Anemia, unspecified
CPT/HCPCS: 36415; 59025; 85025; 86592; 86850; 86900; 86901; 94762; A9270-GY; J0690; J1200; J1885; J2274; J2405; J2590; J2765; J3010; J3490; J7120; J7121

== ENCOUNTER 2023-09-24 07:00 | Day surgery (SDC) | payer MEDICAID ==
[~2023-09-24 07:00] MED LIST changes: -Lactated Ringers 1,000 ML IV SCH; -Oxytocin/Lactated Ringers 10 UNIT/1,000 ML BAG IV SCH; +Sodium Chloride 0.9% 10 ML Syringe FLUSH SCH
[2023-09-24 07:07] LABS: APPEARANCE,URINE CLEAR (Clear); BILIRUBIN,URINE NEGATIVE (Negative); COLOR,URINE YELLOW (Yellow); GLUCOSE,URINE NEGATIVE (Negative); KETONES,URINE NEGATIVE (Negative); LEUKOCYTE ESTERASE,URINE TRACE (Negative); NITRITE,URINE NEGATIVE (Negative); OCCULT BLOOD,URINE TRACE-INTACT (Negative); PROTEIN,URINE NEGATIVE (Negative); UROBILINOGEN,URINE 0.2 (0.2-1.0)
[2023-09-24] MEDS ORDERED: fentaNYL 100 MCG/2 ML SDV IVPUSH PRN (07:24)
[2023-09-24] MEDS ORDERED: HYDROmorphone 0.5 MG/0.5 ML Syringe IVPUSH PRN (07:24)
[2023-09-24] MEDS ORDERED: Ondansetron 4 MG/2 ML SDV IVPUSH PRN (07:24)
[2023-09-24] MEDS: Lactated Ringers 1,000 ML IV SCH ×2 (07:25→09:20)
[2023-09-24] MEDS ORDERED: Midazolam 1 MG/ML 2 ML SDV ONE (07:27)
[2023-09-24] MEDS ORDERED: fentaNYL 100 MCG/2 ML SDV ONE (07:27)
[2023-09-24] MEDS ORDERED: Propofol 200 MG/20 ML SDV ONE (07:28)
[2023-09-24] MEDS ORDERED: Lidocaine 1% 4 ML ONE (07:28)
[2023-09-24] MEDS ORDERED: Ketorolac 30 MG/ML SDV ONE (08:17)
[2023-09-24] MEDS ORDERED: Dexamethasone 4 MG/ML 5 ML MDV ONE (08:17)
[2023-09-24] MEDS ORDERED: Ondansetron 4 MG/2 ML SDV ONE (08:17)
[2023-09-24] MEDS ORDERED: Lactated Ringers 1,000 ML ONE (08:36)
[2023-09-24] MEDS ORDERED: Acetaminophen/HYDROcodone 325-5 MG Tab PO PRN (09:28)
[2023-09-24 10:28] VITALS: BP 112/75; PULSE 75
== END 2023-09-24 10:40 | disposition home or self-care (01) ==
LOC: JD.SDS 07:00
PROVIDERS: ATTEND Obstetrics & Gynecology
DX: N84.0 Polyp of corpus uteri (principal); J30.9 Allergic rhinitis, unspecified; D64.9 Anemia, unspecified; G43.909 Migraine, unspecified, not intractable, without status migrainosus; N97.0 Female infertility associated with anovulation; Z79.899 Other long term (current) drug therapy
CPT/HCPCS: 58558; 81003; 81025; J1100; J1885; J2250; J2405; J2704; J3010; J7030; J7120; J3490

== ENCOUNTER 2024-03-24 07:03 | Day surgery (SDC) | payer OTHER ==
[2024-03-24] MEDS: Lactated Ringers 1,000 ML IV SCH (07:20)
[2024-03-24] MEDS ORDERED: Bupivacaine 0.5% 30 ML SDV ONE (07:29)
[2024-03-24] MEDS ORDERED: Propofol 200 MG/20 ML SDV ONE (07:36)
[2024-03-24] MEDS ORDERED: fentaNYL 100 MCG/2 ML SDV ONE (07:36)
[2024-03-24] MEDS ORDERED: Midazolam 1 MG/ML 2 ML SDV ONE (07:36)
[2024-03-24] MEDS ORDERED: Succinylcholine 200 MG/10 ML MDV ONE (07:37)
[2024-03-24] MEDS ORDERED: Ondansetron 4 MG/2 ML SDV ONE (07:37)
[2024-03-24] MEDS ORDERED: Lidocaine 1% 5 ML VIAL ONE (07:37)
[2024-03-24] MEDS ORDERED: Rocuronium 50 MG/5 ML Vial ONE (07:37)
[2024-03-24] MEDS ORDERED: Dexamethasone 4 MG/ML 5 ML MDV ONE (08:00)
[2024-03-24] MEDS ORDERED: fentaNYL 100 MCG/2 ML SDV IVPUSH PRN (08:21)
[2024-03-24] MEDS ORDERED: Ondansetron 4 MG/2 ML SDV IVPUSH PRN (08:21)
[2024-03-24] MEDS: HYDROmorphone 0.5 MG/0.5 ML Syringe IVPUSH PRN (09:53)
[2024-03-24] MEDS: Ketorolac 30 MG/ML SDV IVPUSH SCH (10:10)
[2024-03-24] MEDS: Ketorolac 30 MG/ML SDV ONE (11:29)
[2024-03-24] MEDS: Acetaminophen/oxyCODONE 325-5 MG Tab PO SCH (11:30)
[2024-03-24 18:11] VITALS: BP 103/62
[2024-03-24 18:12] VITALS: PULSE 74
== END 2024-03-24 12:30 | disposition home or self-care (01) ==
LOC: JD.SDS 07:03
PROVIDERS: ATTEND Obstetrics & Gynecology
DX: N83.8 Other noninflammatory disorders of ovary, fallopian tube and broad ligament (principal)
CPT/HCPCS: 58558; 58661; 81025; A9270; J0330; J0665; J1100; J1170; J1885; J2250; J2405; J2704; J3010; J7120; 00840; J3490

== ENCOUNTER 2024-03-28 09:44 | Emergency (ER) | payer OTHER ==
[2024-03-28] MEDS: Famotidine 20 MG Tab PO ONE (10:34)
[2024-03-28] MEDS: Cetirizine 10 MG Tab PO ONE (10:34)
[2024-03-28 14:04] VITALS: BP 114/80; PULSE 74
== END 2024-03-28 10:42 | disposition home or self-care (01) ==
LOC: JD.ED 09:44
DX: L23.1 Allergic contact dermatitis due to adhesives (principal); Z79.899 Other long term (current) drug therapy; Z91.048 Other nonmedicinal substance allergy status
CPT/HCPCS: 99283; A9270

== ENCOUNTER 2025-08-20 05:01 | Inpatient (IN) | payer OTHER ==
[2025-08-20] MEDS ORDERED: Citric Acid/Sodium Citrate Solution 30 ML Cup PO ONE (05:07)
[2025-08-20] MEDS ORDERED: Lactated Ringers 1,000 ML IV SCH (05:15)
[2025-08-20] MEDS: Lactated Ringers 1,000 ML IV SCH ×2 (05:28→07:18)
[2025-08-20] MEDS ORDERED: Oxytocin/0.9 % Sodium Chloride 30 UNIT/500 ML BAG IV SCH ×2 (05:30→12:03)
[2025-08-20 05:34] LABS: BASOPHILS ABSOLUTE AUTO 0.0 K/mm3 (0.0-0.2); BASOPHILS PERCENT AUTO 0.6 % (0.0-1.0); EOSINOPHILS ABSOLUTE AUTO 0.1 K/mm3 (0.0-0.4); EOSINOPHILS PERCENT AUTO 1.5 % (0.0-6.0); IMMATURE GRAN ABSOLUTE AUTO 0.12 K/mm3 (0.00-0.05); IMMATURE GRAN PERCENT AUTO 1.7 % (0.0-0.4); LYMPHOCYTES ABSOLUTE AUTO 1.9 K/mm3 (1.0-4.8); LYMPHOCYTES PERCENT AUTO 27.1 % (24.0-44.0); MEAN PLATELET VOLUME 10.8 fl (9.4-12.3); MONOCYTES ABSOLUTE AUTO 0.5 K/mm3 (0.0-0.8); MONOCYTES PERCENT AUTO 7.0 % (0.0-8.0); NEUTROPHILS ABSOLUTE AUTO 4.3 K/mm3 (1.8-7.7); NEUTROPHILS PERCENT AUTO 62.1 % (41.0-71.0); NRBC ABSOLUTE 0.00 (0.00-0.02); NRBC PERCENT 0.0 % (0.0-0.2); PLATELET COUNT,PLT 140 K/mm3 (150-400); RED BLOOD CELL COUNT 3.93 M/mm3 (4.10-5.30); WHITE BLOOD CELL COUNT,WBC 6.89 K/mm3 (3.9-11.3)
[2025-08-20] MEDS ORDERED: Phenylephrine 1% 10 MG/ML SDV ONE (06:50)
[2025-08-20] MEDS ORDERED: Ondansetron 4 MG/2 ML SDV ONE (06:50)
[2025-08-20] MEDS: Citric Acid/Sodium Citrate Solution 30 ML Cup PO ONE (07:19)
[2025-08-20] MEDS ORDERED: fentaNYL 100 MCG/2 ML SDV IVPUSH PRN (08:44)
[2025-08-20] MEDS ORDERED: Ondansetron 4 MG/2 ML SDV IVPUSH PRN (08:44)
[2025-08-20] MEDS ORDERED: Ketorolac 30 MG/ML SDV ONE (08:46)
[2025-08-20] MEDS ORDERED: Sodium Chloride 0.9% 10 ML Syringe FLUSH SCH (09:00)
[2025-08-20] MEDS ORDERED: ePHEDrine 50 MG/ML SDV IVPUSH PRN (12:03)
[2025-08-20] MEDS ORDERED: diphenhydrAMINE 50 MG/ML SDV IVPUSH PRN (12:03)
[2025-08-20] MEDS ORDERED: Naloxone 0.4 MG/ML SDV IVPUSH PRN (12:03)
[2025-08-20] MEDS ORDERED: Magnesium Hydroxide 400 MG/5 ML Susp 30 ML Cup PO PRN (12:03)
[2025-08-20] MEDS: Ketorolac 30 MG/ML SDV IVPUSH SCH (14:45)
[2025-08-20] MEDS: Ondansetron 4 MG/2 ML SDV IVPUSH PRN (16:22)
[2025-08-20] MEDS: valACYclovir 1,000 MG Tab PO SCH (20:52)
[2025-08-21 05:45] LABS: MEAN PLATELET VOLUME 11.2 fl (9.4-12.3); NRBC ABSOLUTE 0.00 (0.00-0.02); NRBC PERCENT 0.0 % (0.0-0.2); PLATELET COUNT,PLT 138 K/mm3 (150-400); RED BLOOD CELL COUNT 3.51 M/mm3 (4.10-5.30); WHITE BLOOD CELL COUNT,WBC 8.10 K/mm3 (3.9-11.3)
[2025-08-21] MEDS: Prenatal Multivitamin with Calcium/Folic Acid/Iron Tab PO SCH (09:55)
[2025-08-22] MEDS: Triamcinolone Acetonide 0.1% Crm 15 GM Tube TOP SCH (09:45)
[2025-08-22 13:45] VITALS: BP 130/95; PULSE 70
== END 2025-08-22 12:33 | disposition home or self-care (01) | DRG 788 ==
LOC: JD.OB 05:01 → EDSTATUS 08:00 → JD.OB 08:25 → OBSVTOIN 08:25
PROVIDERS: ADMIT Obstetrics & Gynecology; ATTEND Obstetrics & Gynecology
PROC: 10D00Z1 Extraction of Products of Conception, Low, Open Approach (ICD-10-PCS; principal; 2025-08-20 08:00)
DX: O34.211 Maternal care for low transverse scar from previous cesarean delivery (principal); Z37.0 Single live birth; O13.4 Gestational [pregnancy-induced] hypertension without significant proteinuria, complicating childbirth; O99.72 Diseases of the skin and subcutaneous tissue complicating childbirth; L24.4 Irritant contact dermatitis due to drugs in contact with skin; T41.3X5A Adverse effect of local anesthetics, initial encounter; Z3A.37 37 weeks gestation of pregnancy
CPT/HCPCS: 36415; 59025; 85025; 85027; 86592; 86850; 86900; 86901; A9270-GY; J0690; J1171; J1885; J2371; J2405; J2765; J7120; J7121; J7999